=== PATIENT | male | born 1970 | race Caucasian/White ===

== ENCOUNTER 2025-03-28 13:48 | Emergency (ER) | payer OTHER, SELFPAY ==
[2025-03-28 14:17] LABS: Absolute Lymphocytes (CBC) 1.0 K/uL (0.7-4.9); Hematocrit 33.8 % (39.6-49.0); Hemoglobin 11.5 g/dL (13.6-17.9); MCH 35.4 pg (27.0-35.0); MCHC 34.0 g/dL (32.0-36.0); MCV 104.1 fL (80-100); MPV 8.5 fL (7.6-11.3); Nucleated RBC Absolute Count 0.0 (0-0); Nucleated Red Blood Cells % 0.0 % (0-0); RBC Red Blood Cell Count 3.25 M/uL (4.33-5.43); White Blood Count 12.20 thou/uL (4.3-10.9)
[2025-03-28 14:29] LABS: Base Excess, VBG -12.4 mmol/L (-2.0-3.0); HCO3, Venous Blood Gas 15.0 mmol/L (21.0-29.0); PCO2, Venous Blood Gas 35.0 mmHg (41-51); PH, Venous Blood Gas 7.24 (7.32-7.42); PO2, Venous Blood Gas 104.0 mmHg (25-40)
[2025-03-28 14:30] LABS: O2 Saturation, VBG 96.9 % (40.0-70.0)
[2025-03-28 14:31] LABS: Blood Gas Inspired Oxygen, VBG 97.0 %
[2025-03-28] MEDS ORDERED: CEFEPIME 1 GM/VIAL ONE (14:38)
[2025-03-28] MEDS ORDERED: NA CHLORIDE 0.9% 100 ML ONE (14:38)
[2025-03-28] MEDS ORDERED: ALBUMIN HUMAN 25% 50 ML IV ONE (14:38)
[2025-03-28] MEDS ORDERED: NA CHLORIDE 0.9% 1,000 ML ONE ×2 (14:38→16:02)
[2025-03-28 15:16] LABS: White Blood Cell Scan OK (OK)
[2025-03-28 15:17] LABS: Blood Morphology Comment NOTED (NOT SEEN); Teardrop Cell 2+
[2025-03-28 16:07] LABS: PT Prothrombin Time 37.9 SECONDS (10-13.0); PTT, Activated Partial Thromb 43.4 SECONDS (27.2-37.4); Protime INR 3.48
--- NOTE | 2025-03-28 16:11 | RAD REPORT ---
EXAMINATION: ONE VIEW CHEST XR CLINICAL INDICATION: SOB;Dyspnea TECHNIQUE: Frontal chest projection is submitted. Examination is limited by patient positioning and t echnique. COMPARISON: 05/17/2016 FINDINGS: Moderate bilateral pulmonary opacities suggests pulmonary edema or pneumonia. The heart is upper limi t of normal in size. No displaced fractures identified.
[2025-03-28] MEDS ORDERED: D50W 25 GM/50 ML SYRINGE IV ONE (16:12)
[2025-03-28] MEDS ORDERED: Ringers Lactate 1,000 ML IV ONE ×2 (16:24→17:59)
[2025-03-28 16:34] LABS: ALT/SGPT 32.0 U/L (16-61); Albumin 2.0 g/dL (3.4-5.0); Albumin/Globulin Ratio 0.6 (1.1-1.8); Alkaline Phosphatase 63.0 U/L (45-117); Anion Gap 22.1 mEq/L (5.0-15.0); BUN Blood Urea Nitrogen 28.0 mg/dL (7-18); Globulin 3.6 g/dL (2.3-3.5); Glucose Level 74.0 mg/dL (74-106); NT PRO-BNP 1410.0 pg/mL (<125); Troponin High Sensitivity 7.1 pg/mL (<58.9)
[2025-03-28 16:35] LABS: AST/SGOT 91.0 U/L (15-37); Potassium 5.1 mEq/L (3.5-5.1)
--- NOTE | 2025-03-28 16:43 | ER ---
Nurse's Notes [facility] Name: Adam Perez Age: 55 yrs Sex: Male : 1970 Arrival Date: 03/28/2025 Time: 13:48 Bed 3 Private MD: Diagnosis: Liver cirrhosis, ascites, probable sepsis, renal failure, lactic acidosis Presentation: 03/28 13:45 Chief complaint: EMS states: SOB WITH LOW BP AND LOW BLOOD GLUCOSE 39. EMS GAVE 15 GM db ORAL GLUCOSE AND D10. Coronavirus screen: Client denies travel out of the [place] in the last 14 days. At this time, the client does not indicate any symptoms associated with coronavirus-19. 13:45 Method Of Arrival: EMS: [facility] db 13:45 Ebola Screen: Patient negative for fever greater than or equal to 101.5 degrees db Fahrenheit, and additional compatible Ebola Virus Disease symptoms Patient denies exposure to infectious person. Patient denies travel to an Ebola-affected area in the 21 days before illness onset. No symptoms or risks identified at this time. Initial Sepsis Screen: Does the patient meet any 2 criteria? Temp <36.0*C (96.8*F)) or > 38.3*C (100.9*F). Systolic BP < 90 mmHg. HR > 90 bpm. Yes Does the patient have a suspected source of infection? No. Patient's initial sepsis screen is negative. Risk Assessment: Do you want to hurt yourself or someone else? Patient reports no desire to harm self or others. Onset of symptoms was March 28, 2025. Care prior to arrival: Glucose check: 33. 13:45 Acuity: HEIDI 2 db Triage Assessment: 13:45 General: Appears distressed, ill, Behavior is cooperative, appropriate for age, bp anxious. Pain: Complains of pain in abdomen. EENT: DRY MUCOSA. Neuro: Level of Consciousness is obeys commands, lethargic. Cardiovascular: Rhythm is sinus rhythm. Respiratory: Reports shortness of breath. GI: Abdomen is noted to have ascites. : No signs and/or symptoms were reported regarding the genitourinary system. Derm: Skin is jaundiced. Musculoskeletal: No deficits noted. Historical: - Allergies: 14:31 No Known Allergies; db - PMHx: 14:31 High Cholesterol; Hypertension; Cirrhosis of liver; KIDNEY FAILURE; db - Immunization history:: Adult Immunizations unknown. - Infectious Disease History:: Denies. - Social history:: Smoking status: unknown. Screenin:33 [facility] ED Fall Risk Assessment (Adult) History of falling in the last 3 months, db including since admission No falls in past 3 months (0 pts) Confusion or Disorientation No (0 pts) Intoxicated or Sedated No (0 pts) Impaired Gait No (0 pts) Mobility Assist Device Used No (0 pt) Altered Elimination No (0 pt) Score/Fall Risk Level 0 - 2 = Low Risk Oriented to surroundings, Maintained a safe environment. Abuse screen: Denies threats or abuse. Denies injuries from another. Nutritional screening: No deficits noted. Tuberculosis screening: No symptoms or risk factors identified. Assessment: 14:28 Reassessment: PATIENT PLACED ON ZAHIRA HUGGER. db 14:33 Reassessment: Patient and/or family updated on plan of care and expected duration. Pain db level reassessed. General: Appears uncomfortable, Behavior is cooperative. Pain: Complains of pain in abdomen. Neuro: Level of Consciousness is awake, alert, obeys commands, Oriented to person, place, time, situation. Respiratory: Airway is patent Respiratory effort is labored, Respiratory pattern is regular, symmetrical. GI: Abdomen is distended. 14:36 Reassessment: Dr. Ocampo notified of critical lab value, Lactate 10.1. ss 15:38 Reassessment: Patient and/or family updated on plan of care and expected duration. Pain db level reassessed. Patient is alert, oriented x 3, equal unlabored respirations, skin warm/dry/pink. 16:00 Reassessment: Patient and/or family updated on plan of care and expected duration. Pain db level reassessed. Respiratory: Airway Respiratory effort is even, labored. 17:00 Reassessment: Patient and/or family updated on plan of care and expected duration. Pain db level reassessed. General: Appears uncomfortable, Behavior is cooperative. 17:50 Reassessment: NOTIFIED DR. OCAMPO OF PT VITALS NEW ORDER FOR ANOTHER LR BOLUS. db 18:12 Reassessment: ZAHIRA HUGGER STILL IN PLACE TEMP 95.9. db 18:26 Reassessment: DR. OCAMPO IS AT PATIENT BEDSIDE. db 18:26 Reassessment: CALLED [facility] FOR PATIENT REPORT. REPORT STOPPED DUE TO PT IS db MORE CRITICAL CARE THAN THIS UNIT CAN CARE FOR. 18:28 Reassessment: BP not improving with IV fluids. Dr. Ocampo gave verbal order to ss administer Levophed peripherally at this time and Bipap. Judith RT notified and states she will be here shortly with Bipap machine. O2 NC increased to 6L. 18:31 Reassessment:. db 18:38 Reassessment: PATIENT STARTED ON BIPAP. Respiratory: Patient placed on BiPAP: db Inspiratory Pressure: 16 Expiratory (EPAP) Pressure: 6 FiO2%: 60 Respiratory Rate: 16. 18:59 Reassessment: Patient and/or family updated on plan of care and expected duration. Pain db level reassessed. 19:04 Reassessment: REPORT GIVEN TO GOVERNMENT EMPLOYEE RN. db 19:05 Reassessment: No changes from previously documented assessment. Patient and/or family vc1 updated on plan of care and expected duration. Pain level reassessed. General: Appears uncomfortable, Behavior is calm, cooperative. Pain: Complains of pain in abdomen. Neuro: Level of Consciousness is awake, alert, obeys commands, Oriented to person, place, situation. Cardiovascular: Capillary refill is sluggish. Respiratory: Airway is patent Respiratory effort is even, labored, Respiratory pattern is symmetrical, Patient placed on BiPAP: Inspiratory Pressure: 16 Expiratory (EPAP) Pressure: 6 FiO2%: 60 Respiratory Rate: 16 Breath sounds are clear bilaterally. GI: Abdomen is distended, noted to have ascites, Reports lower abdominal pain, upper abdominal pain, bloating. : No deficits noted. No signs and/or symptoms were reported regarding the genitourinary system. EENT: No deficits noted. No signs and/or symptoms were reported regarding the EENT system. Derm: Skin is intact, Skin is dry, Skin is jaundiced, Skin temperature is cool. Musculoskeletal: Swelling present in right leg and left leg. 20:53 Reassessment: No changes from previously documented assessment. Patient and/or family vc1 updated on plan of care and expected duration. Pain level reassessed. Vital Signs: 13:45 BP 84 / 42; Pulse 78; Resp 20; Temp 94.6(R); Pulse Ox 97% ; Weight 102.06 kg; Height 6 db ft. 0 in. ; 14:15 BP 91 / 45; Pulse 81; Resp 20; Pulse Ox 100% on 3 lpm NC; db 14:30 BP 98 / 61; Pulse 91; Resp 18; Pulse Ox 96% ; db 14:45 BP 89 / 41; Pulse 87; Resp 21; Pulse Ox 97% on NC; db 15:00 BP 91 / 59; Pulse 89; Resp 22; Pulse Ox 96% on 2 lpm NC; db 15:15 BP 85 / 49; Pulse 88; Resp 20; Temp 94.3(Ca); Pulse Ox 97% on 3 lpm NC; db 15:30 BP 87 / 47; Pulse 88; Resp 22; Temp 94.4(Ca); Pulse Ox 98% 3 lpm ; db 15:45 BP 81 / 46; Pulse 88; Resp 22; Temp 94.5(Ca); Pulse Ox 96% 3 lpm ; db 16:30 BP 89 / 51; Pulse 89; Resp 24; Temp 94.4; Pulse Ox 95% ; db 16:45 BP 90 / 46; Pulse 90; Resp 20; Pulse Ox 95% ; db 16:58 Temp 95.9; db 17:00 BP 93 / 49; Pulse 92; Resp 22; Pulse Ox 95% on 3 lpm NC; db 17:15 BP 82 / 42; Pulse 92; Resp 22; Pulse Ox 94% on 3 lpm NC; db 17:30 BP 83 / 47; Pulse 91; Resp 23; Pulse Ox 94% on 3 lpm NC; db 17:50 BP 80 / 44; Pulse 91; Resp 21; Pulse Ox 92% 3 lpm ; db 18:00 BP 81 / 41; Pulse 90; Resp 24; Temp 95.9; Pulse Ox 93% on 3 lpm NC; db 18:00 BP 89 / 36; Pulse 91; Resp 23; Pulse Ox 91% 4 lpm ; db 18:35 BP 102 / 51; Pulse 95; Resp 0; Pulse Ox 100% on BiPAP; FiO2 60 %; db 18:40 BP 106 / 44; Pulse 94; db 18:45 BP 92 / 47; Pulse 91; db 18:50 BP 88 / 43; Pulse 90; db 18:55 BP 83 / 42; Pulse 91; Resp 21; Pulse Ox 100% on BiPAP; db 19:00 BP 99 / 47; Pulse 91; Resp 19; Pulse Ox 100% on BiPAP; db 19:00 BP 99 / 47; Pulse 91; Resp 22; Temp 94.6(Ca); Pulse Ox 100% on BiPAP; FiO2 60 %; vc1 19:15 BP 110 / 45; Pulse 91; Resp 17; Temp 94.7(Ca); Pulse Ox 100% on BiPAP; FiO2 60 %; vc1 20:00 BP 98 / 51; Pulse 91; Resp 20; Temp 95.2(Ca); Pulse Ox 100% on BiPAP; FiO2 60 %; vc1 20:30 BP 92 / 45; Pulse 89; Resp 21; Temp 95.4(Ca); Pulse Ox 100% on BiPAP; FiO2 60 %; vc1 13:45 Body Mass Index 30.52 (102.06 kg, 182.88 cm) db 18:00 MAP 52 db 18:40 MAP 61 db 18:45 MAP 62 db 18:50 MAP 54. LEVOPHED INCREASED TO 0.15 MCG/KG/MIN db 18:55 MAP 56, LEVOPHED INCREASED TO .2 MCG/KG/MIN db 19:00 MAP 63. LEVOPHED LEFT AT SAME RATE db ED Course: 13:45 Arm band placed on Patient placed in an exam room. db 13:51 Patient arrived in ED. sp3 13:52 Cecilio Ocampo MD is Attending Physician. sp3 13:57 Collin Pruett, NEDA is Primary Nurse. ll1 14:05 Initial lab(s) drawn, by me, sent to lab. First set of blood cultures drawn. Inserted ll1 saline lock: 22 gauge in right wrist, using aseptic technique. Blood collected. Flushed with 10 mL NS. 14:32 Triage completed. db 14:34 Patient has correct armband on for positive identification. Bed in low position. Call db light in reach. Side rails up X 1. Client placed on continuous cardiac and pulse oximetry monitoring. NIBP monitoring applied. site monitor on. Pulse ox on. NIBP on. Warm blanket given. Pillow given. 15:53 Lab(s) recollected, by me, sent to lab. ss 16:09 Chest Single View XRAY In Process Unspecified. EDMS 16:45 transfer initiated with Roseann at the [facility] transfer center. bc6 18:37 BIPAP Sent. db 19:05 Provided Education on: Plan of care. vc1 19:14 Report received from NEDA Ruvalcaba. vc1 19:22 Hoffman cath inserted, using sterile technique, by ED staff, balloon inflated, other vc1 Critcore hoffman. 19:[address] Eladio Perez accepted pt to [facility] 1741 Roseann Robison accepted pt with new sp bed MICU #[id number]. report #[phone] [facility] for transport talked to Renate. 20:56 No provider procedures requiring assistance completed. Patient transferred, IV remains vc1 in place. Administered Medications: 14:40 Drug: NS 0.9% IV 1000 ml IV at 1000 ml once; to be given as a bolus over 60 minutes db Route: IV; Rate: 1000 ml; Site: left wrist; 19:17 Follow up: Response: No adverse reaction; IV Status: Completed infusion; IV Intake: db 1000ml 14:45 Drug: Albumin IVPB 12.5 grams 50 ml IVPB once; (Note: albumin 25% concentration) db Volume: 50 ml; Route: IVPB; Site: right antecubital; 15:21 Follow up: Response: No adverse reaction; IV Status: Completed infusion; IV Intake: 50mldb 14:50 Drug: Cefepime IVPB 1 grams IVPB at 200 ml/hr once over 30 mins; (mix in NS 100 mL) db Route: IVPB; Rate: 200 ml/hr; Infused Over: 30 mins; Site: left forearm; 20:32 Follow up: IV Status: Completed infusion cp4 16:10 Drug: NS 0.9% IV 1000 ml IV at 1000 ml once; to be given as a bolus over 60 minutes db Route: IV; Rate: 1000 ml; Site: right antecubital; 19:17 Follow up: Response: No adverse reaction; IV Status: Completed infusion; IV Intake: db 1000ml 16:13 Drug: D50W IVP 50 ml IVP once; (1 amp) Route: IVP; Site: right antecubital; db 20:32 Follow up: Response: No adverse reaction cp4 16:25 Drug: Ringers - Lactated Ringers Solution IV 1000 ml IV at calculated rate bolus; to be db given as a bolus over 60 minutes Route: IV; Rate: calculated rate; Site: left forearm; 17:20 Follow up: Response: No adverse reaction; IV Status: Completed infusion; IV Intake: db 1000ml 18:00 Drug: Ringers - Lactated Ringers Solution IV 1000 ml IV at calculated rate bolus; to be db given as a bolus over 30 minutes Route: IV; Rate: calculated rate; Site: left forearm; 20:32 Follow up: IV Status: Completed infusion cp4 18:33 Drug: Norepinephrine IV 0.1 mcg/kg/min IV at calculated rate See Administration db Instructions; (Standard concentration 4 mg / 250 mL D5W); Recommended max rate 3 mcg/kg/min; Titrate 0.05 mcg/kg/min as often as every 5 minutes to achieve goal (see titration policy); Goal parameter MAP greater than 65 mmHg. Route: IV; Rate: calculated rate; Site: right antecubital; 18:52 Follow up: Rate change 0.15 mcg/kg/min db 18:55 Follow up: Rate change 0.2 mcg/kg/min db 20:33 Follow up: IV Status: Infusion continued upon transfer cp4 21:04 Follow up: IV Status: Infusion continued upon transfer; Started 2nd Levo drip for vc1 transfer 18:35 CANCELLED (Duplicate Order): norepinephrine0.1 mcg/kg/min IV at calculated rate See db Administration Instructions; (Standard concentration 4 mg / 250 mL D5W); Recommended max rate 3 mcg/kg/min; Titrate 0.05 mcg/kg/min as often as every 5 minutes to achieve goal (see titration policy); Goal parameter MAP greater than 65 mmHg. 20:32 Drug: Ondansetron IVP 4 mg IVP once; over 2 minutes Route: IVP; Site: left hand; cp4 20:33 Follow up: Response: No adverse reaction; Nausea is decreased cp4 Medication: 14:33 VIS not applicable for this client. db Point of Care Testing: Blood Glucose: 13:50 Blood Glucose: 36 mg/dL; db 14:45 Blood Glucose: 81 mg/dL; db 16:10 Blood Glucose: 59 mg/dL; db 17:13 Blood Glucose: 91 mg/dL; db Ranges: Intake: 15:21 IV: 50ml; Total: 50ml. db 17:20 IV: 1000ml; Total: 1050ml. db 19:17 IV: 1000ml; Total: 2050ml. db 19:17 IV: 1000ml; Total: 3050ml. db Outcome: 16:43 ER care complete, transfer ordered by sp3 20:56 Transferred by ground EMS to [facility], Transfer form vc1 completed. X-rays sent w/ patient. 20:56 Condition: stable 20:56 Instructed on the need for transfer, 21:05 Patient left the ED. vc1 Signatures: Dispatcher [employer] EDMS Saundra Peoples Shelby, RN RN Dylan Dougherty RN RN bp Lewis, Lynsay RN RN ll1 Cecilio Ocampo MD MD sp3 Sabrina Carlin RN RN vc1 Peg Mata RN RN db Rosanne Viera [facility] Gely Lara 4 Corrections: (The following items were deleted from the chart) 14:26 13:45 BP 84 / 42; Pulse 78bpm; Resp 20bpm; Pulse Ox 97%; Temp 92.5F; 102.06 kg; Height db 6 ft. 0 in.; BMI: 30.5; db 15:11 13:45 BP 84 / 42; Pulse 78bpm; Resp 20bpm; Pulse Ox 97%; Temp 94.6F; 102.06 kg; Height db 6 ft. 0 in.; BMI: 30.5; db 18:12 14:33 Reassessment: Patient and/or family updated on plan of care and expected db duration. Pain level reassessed. Patient is alert, oriented x 3, equal unlabored respirations, skin warm/dry/pink. db 18:12 14:33 Respiratory: Airway is patent Respiratory effort is even, unlabored, Respiratory db pattern is regular, symmetrical, db 18:13 18:00 BP 81 / 41; Pulse 90bpm; Resp 24bpm; Pulse Ox 93% 3 lpm Nasal Cannula; db db 18:31 18:26 Reassessment: CALLED [facility] FOR PATIENT REPORT. db db
--- NOTE | 2025-03-28 16:43 | EDPHYS ---
Physician Documentation [facility] Name: Adam Perez Age: 55 yrs Sex: Male : 1970 Arrival Date: 03/28/2025 Time: 13:48 Bed 3 Private MD: ED Physician Cecilio Ocampo HPI: 03/28 14:26 This 55 yrs old Male presents to ER via EMS with complaints of Shortness Of Breath, Low sp3 Blood Sugar, Blood Pressure Problem. 14:26 55-year-old male with history of recently diagnosed alcoholic cirrhosis with subsequent sp3 frequent ascites. Patient is being treated at [facility]. He had asked EMS to take him there however they brought him to the closest facility. Patient states that he has been short of breath secondary to his abdomen being so large. He also feels generally weak. He denies any fever, neck pain, chest pain, vomiting, diarrhea, syncope, bleeding, or any other signs or symptoms on ROS at this time.. Historical: - Allergies: 14:31 No Known Allergies; db - PMHx: 14:31 High Cholesterol; Hypertension; Cirrhosis of liver; KIDNEY FAILURE; db - Immunization history:: Adult Immunizations unknown. - Infectious Disease History:: Denies. - Social history:: Smoking status: unknown. ROS: 14:33 Eyes: Negative for injury, pain, redness, and discharge, Neck: Negative for injury, sp3 pain, and swelling, Cardiovascular: Negative for chest pain, palpitations, and edema, Back: Negative for injury and pain, Neuro: Negative for headache, weakness, numbness, tingling, and seizure, 14:33 All other systems are negative, Exam: 14:33 Head/Face: Normocephalic, atraumatic. Neck: Trachea midline, no thyromegaly or masses sp3 palpated, and no cervical lymphadenopathy. Supple, full range of motion without nuchal rigidity, or vertebral point tenderness. No Meningismus. Cardiovascular: Regular rate and rhythm with a normal S1 and S2. No gallops, murmurs, or rubs. Normal PMI, no JVD. No pulse deficits. 14:33 Abdomen/GI: Patient in poor overall health. Lips are dry. Skin shaved diffusely. Distended abdomen secondary to ascites. Lung sounds clear bilaterally. Blood pressure in the 80s to 90s systolic. Heart rate between 90 and 100. Temperature 94.6., Vital Signs: 13:45 BP 84 / 42; Pulse 78; Resp 20; Temp 94.6(R); Pulse Ox 97% ; Weight 102.06 kg; Height 6 db ft. 0 in. ; 14:15 BP 91 / 45; Pulse 81; Resp 20; Pulse Ox 100% on 3 lpm NC; db 14:30 BP 98 / 61; Pulse 91; Resp 18; Pulse Ox 96% ; db 14:45 BP 89 / 41; Pulse 87; Resp 21; Pulse Ox 97% on NC; db 15:00 BP 91 / 59; Pulse 89; Resp 22; Pulse Ox 96% on 2 lpm NC; db 15:15 BP 85 / 49; Pulse 88; Resp 20; Temp 94.3(Ca); Pulse Ox 97% on 3 lpm NC; db 15:30 BP 87 / 47; Pulse 88; Resp 22; Temp 94.4(Ca); Pulse Ox 98% 3 lpm ; db 15:45 BP 81 / 46; Pulse 88; Resp 22; Temp 94.5(Ca); Pulse Ox 96% 3 lpm ; db 16:30 BP 89 / 51; Pulse 89; Resp 24; Temp 94.4; Pulse Ox 95% ; db 16:45 BP 90 / 46; Pulse 90; Resp 20; Pulse Ox 95% ; db 16:58 Temp 95.9; db 17:00 BP 93 / 49; Pulse 92; Resp 22; Pulse Ox 95% on 3 lpm NC; db 17:15 BP 82 / 42; Pulse 92; Resp 22; Pulse Ox 94% on 3 lpm NC; db 17:30 BP 83 / 47; Pulse 91; Resp 23; Pulse Ox 94% on 3 lpm NC; db 17:50 BP 80 / 44; Pulse 91; Resp 21; Pulse Ox 92% 3 lpm ; db 18:00 BP 81 / 41; Pulse 90; Resp 24; Temp 95.9; Pulse Ox 93% on 3 lpm NC; db 18:00 BP 89 / 36; Pulse 91; Resp 23; Pulse Ox 91% 4 lpm ; db 18:35 BP 102 / 51; Pulse 95; Resp 0; Pulse Ox 100% on BiPAP; FiO2 60 %; db 18:40 BP 106 / 44; Pulse 94; db 18:45 BP 92 / 47; Pulse 91; db 18:50 BP 88 / 43; Pulse 90; db 18:55 BP 83 / 42; Pulse 91; Resp 21; Pulse Ox 100% on BiPAP; db 19:00 BP 99 / 47; Pulse 91; Resp 19; Pulse Ox 100% on BiPAP; db 19:00 BP 99 / 47; Pulse 91; Resp 22; Temp 94.6(Ca); Pulse Ox 100% on BiPAP; FiO2 60 %; vc1 19:15 BP 110 / 45; Pulse 91; Resp 17; Temp 94.7(Ca); Pulse Ox 100% on BiPAP; FiO2 60 %; vc1 20:00 BP 98 / 51; Pulse 91; Resp 20; Temp 95.2(Ca); Pulse Ox 100% on BiPAP; FiO2 60 %; vc1 20:30 BP 92 / 45; Pulse 89; Resp 21; Temp 95.4(Ca); Pulse Ox 100% on BiPAP; FiO2 60 %; vc1 13:45 Body Mass Index 30.52 (102.06 kg, 182.88 cm) db 18:00 MAP 52 db 18:40 MAP 61 db 18:45 MAP 62 db 18:50 MAP 54. LEVOPHED INCREASED TO 0.15 MCG/KG/MIN db 18:55 MAP 56, LEVOPHED INCREASED TO .2 MCG/KG/MIN db 19:00 MAP 63. LEVOPHED LEFT AT SAME RATE db MDM: 13:55 Medical Screening Exam initiated sp3 14:36 Data reviewed: vital signs, nurses notes, EMS record, old medical records, lab test sp3 result(s), EKG, radiologic studies. ED course: 55-year-old male with PMH above now with liver failure with ascites. Ultrasound-guided paracentesis not available at this time at this facility. Patient is requesting to be transferred to [facility] where his existing care team is. We will assess with full workup., Stabilize patient's vital signs and attempt to transfer. Treatment here will include IV fluids, albumin, antibiotics and general supportive care.. 16:38 ED course: 55-year-old male with liver cirrhosis, hypothermia, probable sepsis, lactic sp3 acidosis. Reviewed all labs. Patient will need hepatology that is not available here. His preference is to go to [facility] which we will transfer.. 16:52 ED course: MELD score 39.. sp3 17:51 ED course: Discussed with [facility] team who have graciously accepted this patient.. sp3 17:59 ED course: Repeat lactate at 10.0. We are cautiously giving further IV fluids now on sp3 third liter. Patient has had small amount of urine output but ascites appears to be getting worse. No respiratory compromise. I discussed all of this with [facility] who agrees with current approach. Patient is alert, oriented and in no acute distress. We will hold on treating encephalopathy.. 18:57 ED course: Patient doing much better on BiPAP pulse oxygenation 100% patient tolerating sp3 well. Blood pressure MAP greater than 60 on minimal dose of Levophed.. 03/28 13:57 Order name: BNP; Complete Time: 16:38 sp3 03/28 13:57 Order name: Blood Culture Adult (2) sp3 03/28 13:57 Order name: CBC with Diff; Complete Time: 15:18 sp3 03/28 13:57 Order name: CMP; Complete Time: 16:38 sp3 03/28 13:57 Order name: Lactate w/ 2H reflex if indic.; Complete Time: 14:39 sp3 03/28 13:57 Order name: Protime (+inr); Complete Time: 16:16 sp3 03/28 13:57 Order name: Ptt, Activated; Complete Time: 16:16 sp3 03/28 13:57 Order name: Troponin HS; Complete Time: 16:38 sp3 03/28 14:00 Order name: AMMONIA; Complete Time: 14:39 ll1 03/28 14:00 Order name: Venous Blood Gas; Complete Time: 14:39 ll1 03/28 14:30 Order name: glucometer results - FOR PT WITH NO ID; Complete Time: 15:18 ss 03/28 14:31 Order name: CBC Smear Scan; Complete Time: 15:18 EDMS 03/28 14:39 Order name: Ghost Lactate-NO COLLECT Timer; Complete Time: 16:38 EDMS 03/28 15:01 Order name: Glucose, Ancillary Testing; Complete Time: 15:18 EDMS 03/28 16:11 Order name: UA Rfx Marlon Cult if indicated; Complete Time: 16:47 db 03/28 16:22 Order name: Glucose, Ancillary Testing; Complete Time: 16:22 EDMS 03/28 16:48 Order name: Urine Culture EDMS 03/28 17:20 Order name: Glucose, Ancillary Testing; Complete Time: 17:38 EDMS 03/28 17:24 Order name: Lactate Sepsis 2 HR Follow-up; Complete Time: 17:38 EDMS 03/28 19:54 Order name: Glucose, Ancillary Testing EDMS 03/28 13:57 Order name: Chest Single View XRAY; Complete Time: 16:16 sp3 03/28 18:33 Order name: BIPAP sp3 03/28 13:57 Order name: EKG; Complete Time: 13:57 sp3 03/28 13:57 Order name: Accucheck; Complete Time: 14:29 sp3 03/28 13:57 Order name: Cardiac monitoring; Complete Time: 14:09 sp3 03/28 13:57 Order name: EKG - Nurse/Tech; Complete Time: 14:09 sp3 03/28 13:57 Order name: IV Saline Lock - Large Bore; Complete Time: 14:29 sp3 03/28 13:57 Order name: Labs collected and sent; Complete Time: 14:29 sp3 03/28 13:57 Order name: O2 Per Protocol; Complete Time: 14:09 sp3 03/28 13:57 Order name: O2 Sat Monitoring; Complete Time: 14:09 sp3 03/28 13:57 Order name: Vital Signs; Complete Time: 14:29 sp3 03/28 14:28 Order name: Moses Prieto; Complete Time: 14:29 sp3 Administered Medications: 14:40 Drug: NS 0.9% IV 1000 ml IV at 1000 ml once; to be given as a bolus over 60 minutes db Route: IV; Rate: 1000 ml; Site: left wrist; 19:17 Follow up: Response: No adverse reaction; IV Status: Completed infusion; IV Intake: db 1000ml 14:45 Drug: Albumin IVPB 12.5 grams 50 ml IVPB once; (Note: albumin 25% concentration) db Volume: 50 ml; Route: IVPB; Site: right antecubital; 15:21 Follow up: Response: No adverse reaction; IV Status: Completed infusion; IV Intake: 50mldb 14:50 Drug: Cefepime IVPB 1 grams IVPB at 200 ml/hr once over 30 mins; (mix in NS 100 mL) db Route: IVPB; Rate: 200 ml/hr; Infused Over: 30 mins; Site: left forearm; 20:32 Follow up: IV Status: Completed infusion cp4 16:10 Drug: NS 0.9% IV 1000 ml IV at 1000 ml once; to be given as a bolus over 60 minutes db Route: IV; Rate: 1000 ml; Site: right antecubital; 19:17 Follow up: Response: No adverse reaction; IV Status: Completed infusion; IV Intake: db 1000ml 16:13 Drug: D50W IVP 50 ml IVP once; (1 amp) Route: IVP; Site: right antecubital; db 20:32 Follow up: Response: No adverse reaction cp4 16:25 Drug: Ringers - Lactated Ringers Solution IV 1000 ml IV at calculated rate bolus; to be db given as a bolus over 60 minutes Route: IV; Rate: calculated rate; Site: left forearm; 17:20 Follow up: Response: No adverse reaction; IV Status: Completed infusion; IV Intake: db 1000ml 18:00 Drug: Ringers - Lactated Ringers Solution IV 1000 ml IV at calculated rate bolus; to be db given as a bolus over 30 minutes Route: IV; Rate: calculated rate; Site: left forearm; 20:32 Follow up: IV Status: Completed infusion cp4 18:33 Drug: Norepinephrine IV 0.1 mcg/kg/min IV at calculated rate See Administration db Instructions; (Standard concentration 4 mg / 250 mL D5W); Recommended max rate 3 mcg/kg/min; Titrate 0.05 mcg/kg/min as often as every 5 minutes to achieve goal (see titration policy); Goal parameter MAP greater than 65 mmHg. Route: IV; Rate: calculated rate; Site: right antecubital; 18:52 Follow up: Rate change 0.15 mcg/kg/min db 18:55 Follow up: Rate change 0.2 mcg/kg/min db 20:33 Follow up: IV Status: Infusion continued upon transfer cp4 21:04 Follow up: IV Status: Infusion continued upon transfer; Started 2nd Levo drip for vc1 transfer 18:35 CANCELLED (Duplicate Order): norepinephrine0.1 mcg/kg/min IV at calculated rate See db Administration Instructions; (Standard concentration 4 mg / 250 mL D5W); Recommended max rate 3 mcg/kg/min; Titrate 0.05 mcg/kg/min as often as every 5 minutes to achieve goal (see titration policy); Goal parameter MAP greater than 65 mmHg. 20:32 Drug: Ondansetron IVP 4 mg IVP once; over 2 minutes Route: IVP; Site: left hand; 4 20:33 Follow up: Response: No adverse reaction; Nausea is decreased cp4 Point of Care Testing: Blood Glucose: 13:50 Blood Glucose: 36 mg/dL; db 14:45 Blood Glucose: 81 mg/dL; db 16:10 Blood Glucose: 59 mg/dL; db 17:13 Blood Glucose: 91 mg/dL; db Ranges: Critical Glucose Levels:Adult <50 mg/dl or >400 mg/dl <40 mg/dl or >180 mg/dl Disposition: 14:53 Critical Care:. sp3 Disposition Summary: 03/28/25 16:43 Transfer Ordered Notes: Transfer Location: [facility] sp3 Reason: Higher level of care sp3 Condition: Stable sp3 Problem: an acute exacerbation sp3 Symptoms: have worsened sp3 Accepting Physician: PIERO [facility](03/28/25 21:05) vc1 Diagnosis - Liver cirrhosis, ascites, probable sepsis, renal failure, lactic acidosis sp3 Forms: - Medication Reconciliation Form sp3 - SBAR form sp3 Critical care time excluding procedures: 14:53 Critical care time: Bedside Care: 20 minutes, Consultation: 15 minutes, Family sp3 Intervention: 5 minutes. Total time: 40 minutes Signatures: Dispatcher [employer] Cecilio Manning MD MD sp3 Sabrina Carlin RN RN vc1 Peg Mata RN RN Gely Rich cp4 Corrections: (The following items were deleted from the chart) 14:00 14:00 Venous Blood Gas+[id number] ordered. EDMS EDMS 18:35 18:33 Norepinephrine IV 0.1 mcg/kg/min IV at calculated rate See Administration db Instructions; (Standard concentration 4 mg / 250 mL D5W); Recommended max rate 3 mcg/kg/min; Titrate 0.05 mcg/kg/min as often as every 5 minutes to achieve goal (see titration policy); Goal parameter MAP greater than 65 mmHg. ordered. db 21:05 16:43 [facility] sp3 vc1
[2025-03-28 16:44] LABS: Urine Culture Reflex Order REFLEXED; Urine Microscopic Reflex YN ORDER UMIC
[2025-03-28] MEDS ORDERED: NOREPINEPHRINE BITARTRATE/D5W 4 MG/250 ML BAG IV ONE ×2 (18:28→21:02)
[2025-03-28] MEDS ORDERED: DEXTROSE 10%-WATER 500 ML IV ONE (19:49)
[2025-03-28] MEDS ORDERED: ONDANSETRON 4 MG/2 ML VIAL ONE (20:27)
[2025-03-28 21:35] VITALS: O2SAT 100
[2025-03-28 21:44] VITALS: BP 92/45; TEMP 95.4
== END 2025-03-28 21:05 | disposition short-term general hospital (02) ==
LOC: ER 13:48
DX: K70.31 Alcoholic cirrhosis of liver with ascites (principal); N19 Unspecified kidney failure; E87.20 Acidosis, unspecified
CPT/HCPCS: 36415; 51702; 71045; 80053; 81001; 82140; 82803; 82947; 83605; 83880; 84484; 85025; 85610; 85730; 87040; 87086; 87088; 93005; 94660; 99285; J0692; J2405; J7030; J7120; P9047